=== PATIENT | male | born 1985 | race Caucasian/White ===

== ENCOUNTER 2020-11-30 03:26 | Emergency (ER) | payer SELFPAY ==
[~2020-11-30] VITALS: Ht 172.7 cm; Wt 86.4 kg
--- NOTE | 2020-11-30 03:49 | PHYS DOC ---
Past History Past Medical History: Bipolar, Hypertension, Schizophrenia Additional Past Medical Histor: PTSD (BENOIT NG DO) Additional Past Surgical Histo: Right shoulder x 2 (BENOIT NG DO) Smoking: Cigarettes Alcohol Use: Occasionally Drug Use: Marijuana (BENOIT NG DO) General Adult EDM: Chief Complaint: CHEST PAIN HPI: HPI: Patient is a 34-year-old male coming in via EMS for chest pain. Patient states chest pain started about 2 hours prior to arrival and he took a handful of his propanolol, patient states it was not an effort of self-harm. Is unable to answer why he took so many, does endorse that he has tried to harm himself in the past.. Patient is unsure of how many says he recently got the bottle and there are 20 mg pills that he takes for anxiety and hypertension. Patient states that when the chest pain started he was going to go to bed but could not because his hearing voices outside. Patient states he has been hearing voices for about 3 years and says they often say very harsh things to them. Has been seen for this in the past and was started on Risperdal states he has been compliant with his medications and has not had any dosage changes recently. He [facility] but was diverted to this hospital due to no beds available. He denies any visual hallucinations. Denies any history of cardiac disease, recent illness, fevers, shortness of breath or cough, vomiting or diarrhea. Patient has also been drinking alcohol but states that recently he has been drinking daily that he drinks 6-16 ounce beers this evening. Denies any other coingestions. (RANDAL DEVI MD) Review of Systems: Review of Systems: All other systems within normal limits except for as noted in the HPI (RANDAL DEVI MD) Allergies: Allergies: Allergies Coded Allergies Type Severity Reaction Last Updated Verified No Known Drug Allergies 11/30/20 No (RANDAL DEVI MD) Physical Exam: PE: Constitutional: Well developed, well nourished, no acute distress, non-toxic appearance. [] HENT: Normocephalic, atraumatic, bilateral external ears normal, nose normal. [] Eyes: PERRLA, conjunctiva normal, no discharge. [] Neck: No rigidity, supple, no stridor. [] Cardiovascular: Regular rate and rhythm, brisk cap refill [] Lungs & Thorax: Non labored symmetric respirations, no tachypnea or respiratory distress. No chest wall tenderness [] Abdomen: Soft, nondistended, epigastric tenderness with guarding, no rebound.. Skin: Warm, dry, no erythema, no rash. [] Back: Unremarkable Extremities: No deformities, range of motion grossly intact, no lower extremity edema [] Neurologic: Alert and oriented X 3, no focal deficits noted. [] Psychologic: Flat affect, responding to external stimuli. [] (RANDAL DEVI MD) PE: Constitutional: Well developed, well nourished, non-toxic appearance HENT: Normocephalic, atraumatic Eyes: Conjunctiva normal, no discharge Neck: Normal range of motion, no tenderness, supple Lungs & Thorax: No respiratory distress, equal chest rise and fall Abdomen: Soft, no tenderness Skin: Warm, dry, no erythema, no rash Extremities: No tenderness, ROM intact, no edema Neurologic: Alert and oriented X 3, no focal deficits noted Psychologic: Affect anxious, reports auditory and visual hallucinations, judgment abnormal, paranoid (BENOIT NG DO) EKG: EKG: Sinus rhythm, heart rate 87 bpm, no ST elevation depression, normal axis, no ectopy, normal intervals. No prolongation of UT intervals or QRS intervals. [] (RANDAL DEVI MD) Radiology/Procedures: Radiology/Procedures: Study: XR CHEST 1V Indication: Chest pain. Comparison: None. Findings: Within normal limits cardiomediastinal silhouette and lyudmila given low lung volumes. Mildly increased interstitial markings favored bronchovascular crowding from shallow inspiration. No confluent infiltrate, pneumothorax or layering effusion. Possible postsurgical changes involving the right shoulder girdle with truncation of the distal clavicle. No acute osseous abnormality is apparent. Impression: Noting shallow inspiration, no acute radiographic abnormality of the chest. [] (RANDAL DEVI MD) Heart Score: Risk Factors: Risk Factors: DM, Current or recent (<one month) smoker, HTN, HLP, family history of CAD, obesity. Risk Scores: Score 0 - 3: 2.5% MACE over next 6 weeks - Discharge Home Score 4 - 6: 20.3% MACE over next 6 weeks - Admit for Clinical Observation Score 7 - 10: 72.7% MACE over next 6 weeks - Early Invasive Strategies (RANDAL DEVI MD) HEART Score for Chest Pain: HEART Score for Chest Pain Response (Comments) Value History Slighlty/Non-Suspicious 0 ECG Normal 0 Age < 45 0 Risk Factors 1 or 2 Risk Factors 1 Troponin < Normal Limit 0 Total 1 Course & Med Decision Making: Course & Med Decision Making Called [facility] and requested records. Per with patient patient gets prescriptions for 60 tablets of 20 mg propranolol HCl. Patient has significant history for substance abuse, prior suicide attempt by taking valproic acid. Had a psychiatric stay in February 2020. Consulted poison control center who agreed that as long as the pills are not extended release the current vital signs on this patient are not consistent with a propranolol overdose. So recommend laboratory evaluation ops for 6 hours. Pending medical clearance at shift change, care transition to Dr. Ng [] (RANDAL DEVI MD) Course & Med Decision Making 0600- Signout received from Dr. Devi for patient with anxiety and auditory hallucinations. Hx of "taking a handful" of propanolol, reportedly for anxiety and not for suicidality. Poison control recommending 6 hours observation. EKG stable. Labs reviewed. Patient appears anxious, paranoid, and with auditory and visual hallucinations. Patient seen and evaluated by myself. No clinical signs of propanolol overdose appreciated. Ativan 1mg IVP symptomatic treatment given. 0730- Patient medically cleared for psychiatric assessment. Eduardo, psychiatric assessment team (PAT), notified for consult. 0830- Patient came out of room reporting he is seeing people looking in on him from the windows and he doesn't want to be killed in the ER. Reports they have guns. Reports "just give me a gun and I'll just blow my head off before they do." 0900- Eduardo (PAT) evaluated patient in ED with recommendation for inpatient psychiatric services. [facility]iscussed with [facility] regarding need for [facility] services[facility] Rapid COVID negative. 1235- Discussed case with Dr. Neal (psych) at [facility] who is accepting of transfer for inpatient psychiatric services. Discussed current findings and plan with patient, who acknowledges understanding and agreement. (BENOIT NG DO) Barbara Disclaimer: Barbara Disclaimer: This electronic medical record was generated, in whole or in part, using a voice recognition dictation system. (RANDAL DEVI MD) Departure Departure: Impression: Primary Impression: Paranoid schizophrenia Additional Impression: Hallucinations Disposition: 65 DC/TRF TO PSYCH HOSP ([facility]- Dr. Neal accepting) Condition: STABLE RANDAL DEVI MD Nov 30, 2020 03:49 NGBENOIT DO Nov 30, 2020 07:18
--- NOTE | 2020-11-30 04:28 | RAD ---
Study: XR CHEST 1V Indication: Chest pain. Comparison: None. Findings: Within normal limits cardiomediastinal silhouette and lyudmila given low lung volumes. Mildly increased i nterstitial markings favored bronchovascular crowding from shallow inspiration. No confluent infiltra te, pneumothorax or layering effusion. Possible postsurgical changes involving the right shoulder girdle with truncation of the distal clavi ailyn. No acute osseous abnormality is apparent. Impression: Noting shallow inspiration, no acute radiographic abnormality of the chest. Electronically signed by: ALISSA LOU MD (11/30/2020 4:26 AM) [facility]
[2020-11-30 04:50] LABS: BASO % 1 % (0-3); EOS # 0.2 x10^3/uL (0.0-0.7); EOS % 3 % (0-3); HEMATOCRIT 50.4 % (39.0-53.0); HEMOGLOBIN 17.3 g/dL (13.0-17.5); LYMPH # 2.9 x10^3/uL (1.0-4.8); LYMPH % 49 % (24-48); MEAN CORPUSCULAR HEMOGLOBIN 30 pg (25-35); MEAN CORPUSCULAR HGB CONC 34 g/dL (31-37); MEAN CORPUSCULAR VOLUME 87 fL (79-100); MONO # 0.5 x10^3/uL (0.0-1.1); MONO % 8 % (0-9); NEUT # 2.4 x10^3uL (1.8-7.7); NEUT % 40 % (31-73); PLATELET COUNT 137 x10^3/uL (140-400); RED BLOOD COUNT 5.79 x10^6/uL (4.30-5.70); RED CELL DISTRIBUTION WIDTH 14.3 % (11.5-14.5); WHITE BLOOD COUNT 5.9 x10^3/uL (4.0-11.0)
[2020-11-30 05:03] LABS: ETHANOL < 10 mg/dL (0-10); SALIC 4.6 mg/dL (2.8-20.0)
[2020-11-30 05:04] LABS: ACETAMIN < 2.0 mcg/mL (10-30)
[2020-11-30 05:13] LABS: CALCIUM 8.8 mg/dL (8.5-10.1); CREATININE 0.8 mg/dL (0.7-1.3); GFR 110.7; POTASSIUM 4.4 mmol/L (3.5-5.1)
[2020-11-30] MEDS ORDERED: diphenhydrAMINE 50 MG/ML VIAL IVP ONE (05:15)
[2020-11-30 05:17] LABS: ALBUMIN 3.9 g/dL (3.4-5.0); ALBUMIN/GLOBULIN RATIO 1.2 (1.0-1.7); MAGNESIUM 1.9 mg/dL (1.8-2.4); TOTAL BILIRUBIN 0.6 mg/dL (0.2-1.0); TOTAL PROTEIN 7.1 g/dL (6.4-8.2)
--- NOTE | 2020-11-30 06:11 | EKG ---
[address] [address] Test Date: 2020-11-30 Test Time: 03:42:51 Pat Name: SERENA DIEGO Department: Room: Gender: M Audit Director: BROOK : 1985 Requested By: RANDAL DEVI Order Number: [id number] Reading MD: Measurements Intervals [place] Rate: 87 P: 47 UT: 138 QRS: 4 QRSD: 88 T: 24 QT: 358 QTc: 431 Interpretive Statements SINUS RHYTHM NORMAL ECG RI6.02 No previous ECG available for comparison
[2020-11-30 06:38] LABS: BARBITURATES NEG (NEG); BENZODIAZEPINES NEG (NEG); CANNABINOIDS POS (NEG); COCAINE NEG (NEG); METHADONE NEG (NEG); OPIATES NEG (NEG); PHENCYCLIDINE NEG (NEG)
[2020-11-30 06:41] LABS: BACTERIA,URINE 0 /HPF (0-FEW); BILIRUBIN,URINE NEG (NEG); CLARITY,URINE CLEAR; COLOR,URINE YELLOW; GLUCOSE,URINE NEG (NEG); NITRITE,URINE NEG (NEG); RBC,URINE OCC /HPF (0-2); WBC,URINE OCC /HPF (0-4)
[2020-11-30 06:46] LABS: AMPHETAMINE/METHAMPHETAMINE POS (NEG)
[2020-11-30 11:13] LABS: SALIC 4.5 mg/dL (2.8-20.0)
[2020-11-30 13:22] VITALS: BP 120/86
== END 2020-11-30 13:30 ==
LOC: ER 03:26
DX: F20.0 Paranoid schizophrenia (principal); R44.0 Auditory hallucinations; R07.9 Chest pain, unspecified; R10.13 Epigastric pain; F31.9 Bipolar disorder, unspecified; I10 Essential (primary) hypertension; F17.210 Nicotine dependence, cigarettes, uncomplicated; Z20.822 Contact with and (suspected) exposure to COVID-19
CPT/HCPCS: 36415; 71045; 80053; 80307; 80329; 81001; 83605; 83690; 83735; 84443; 84484; 85025; 85379; 87426; 93005; 96374; 96375; 99285; C9803; G0480; J1200; J2060; U0003